=== PATIENT | female | born 1965 | race Caucasian/White ===

== ENCOUNTER 2019-03-09 12:38 | Inpatient (IN) | payer BC ==
[~2019-03-09] VITALS: Ht 172.7 cm; Wt 74.4 kg
[~2019-03-09 12:38] MED LIST: BYSTOLIC20 MG PO; DILT360C PO; DULA0.75 SQ; EXEN2VIA SQ; HYDR-2761 PO; HYDR-2868 PO; HYDR12.58 PO; LEVO125T PO; LEVO150T5 PO; LISI-334 PO; MELO15TA23 PO; METF500T16 PO; NIFE60TA PO; PANT20TA2 PO; POTA20TA4 PO; SIMV20TA3 PO; SULF500T7 PO; TEMA15CA6 PO; TRAM50TA PO
[2019-03-09] MEDS ORDERED: ASPIRIN CHEWABLE 81 MG TABLET. PO ONE (13:00)
[2019-03-09] MEDS ORDERED: NITROGLYCERIN SUBLINGUAL 0.4 MG BOTTLE OF 25. SL PRN (13:00)
--- NOTE | 2019-03-09 13:19 | RAD ---
Single view of the chest. 03/09/2019 1:04 PM Indication: Chest pain Comparison: Chest radiograph November 18, 2017 Findings: There is no focal consolidation. There is no pleural effusion or pneumothorax. The cardiomediastinal silhouette and pulmonary vasculature are within normal limits. No acute osseous abnormalities are seen. Impression: No evidence of acute cardiopulmonary process. Electronically signed by: Francisco Avalos MD (03/09/2019 1:15 PM) [facility]
[2019-03-09 13:24] LABS: BASO % 1 % (0-3); EOS # 0.1 x10^3/uL (0.0-0.7); EOS % 2 % (0-3); HEMATOCRIT 37.6 % (36.0-47.0); HEMOGLOBIN 12.5 g/dL (12.0-15.5); LYMPH # 2.8 x10^3/uL (1.0-4.8); LYMPH % 31 % (24-48); MEAN CORPUSCULAR HEMOGLOBIN 26 pg (25-35); MEAN CORPUSCULAR HGB CONC 33 g/dL (31-37); MEAN CORPUSCULAR VOLUME 79 fL (79-100); MONO % 11 % (0-9); NEUT # 5.1 x10^3/uL (1.8-7.7); NEUT % 56 % (31-73); PLATELET COUNT 383 x10^3/uL (140-400); RED BLOOD COUNT 4.75 x10^6/uL (3.50-5.40); RED CELL DISTRIBUTION WIDTH 14.6 % (11.5-14.5); WHITE BLOOD COUNT 9.1 x10^3/uL (4.0-11.0)
[2019-03-09 13:36] LABS: CALCIUM 10.1 mg/dL (8.5-10.1); CREATININE 1.4 mg/dL (0.6-1.0); GFR 39.5; POTASSIUM 4.1 mmol/L (3.5-5.1)
[2019-03-09 13:40] LABS: PROTHROMBIN TIME PATIENT 12.4 SEC (11.7-14.0)
[2019-03-09 13:42] LABS: ALBUMIN 3.8 g/dL (3.4-5.0); ALBUMIN/GLOBULIN RATIO 0.9 (1.0-1.7); MAGNESIUM 1.7 mg/dL (1.8-2.4); TOTAL BILIRUBIN 0.4 mg/dL (0.2-1.0); TOTAL PROTEIN 7.9 g/dL (6.4-8.2)
--- NOTE | 2019-03-09 13:48 | EKG ---
[facility] [address] [place] [address] Test Date: 2019-03-09 Test Time: 12:43:18 Pat Name: ALIS KOROMA Department: Room: Gender: F [employer] Sales Specialist: : 1965 Requested By: KATIA CARTER Order Number: [id number] Reading MD: Art Kaufman MD Measurements Intervals [place] Rate: 59 P: 0 KS: 208 QRS: -21 QRSD: 84 T: 72 QT: 440 QTc: 436 Interpretive Statements SINUS RHYTHM Electronically Signed On 03-09-2019 17:55:48 CDT by Art Kaufman MD
[2019-03-09] MEDS ORDERED: MORPHINE SULFATE 4 MG/ML VIAL. IV ONE (14:00)
[2019-03-09] MEDS ORDERED: ONDANSETRON PF 4 MG/2 ML VIAL. IV ONE (14:00)
--- NOTE | 2019-03-09 14:29 | PHYS DOC ---
Past Medical History Past Medical History: A-Fib, Diabetes-Type II, Hypertension, Other Additional Past Medical Histor: , Hodgkins lymphoma Past Surgical History: Cholecystectomy, Hysterectomy, Oophorectomy, Other Additional Past Surgical Histo: Thyroidectomy, bone marrow bx Alcohol Use: None Drug Use: None Adult General Chief Complaint Chief Complaint: CHEST PAIN HPI HPI Patient is a 53 year old female who presents with complaining of chest pain. Patient complaining of substernal aching chest pain since this morning as a constant pain with shortness of breath and dizziness. Patient states she had blood pressure of 116 and heart rate of 38 the. Patient rated her pain 8/10 and did not take pain medication at home. Patient denies history of chest pain and coronary artery disease but has history of intermittent episodes of atrial fibrillation. Review of Systems Review of Systems Constitutional: Denies fever or chills [] Eyes: Denies change in visual acuity, redness, or eye pain [] HENT: Denies nasal congestion or sore throat [] Respiratory: Denies cough or shortness of breath [] Cardiovascular: No additional information not addressed in HPI [] GI: Denies abdominal pain, nausea, vomiting, bloody stools or diarrhea [] : Denies dysuria or hematuria [] Musculoskeletal: Denies back pain or joint pain [] Integument: Denies rash or skin lesions [] Neurologic: Denies headache, focal weakness or sensory changes [] Endocrine: Denies polyuria or polydipsia [] All other systems were reviewed and found to be within normal limits, except as documented in this note. Current Medications Current Medications Current Medications Medications (Trade) Dose Ordered Sig/[facility] Start Time Stop Time Status Last Admin Dose Admin Aspirin (Children'S Aspirin) 324 mg 1X ONCE 03/09/19 13:00 03/09/19 13:07 DC 03/09/19 13:15 324 MG Morphine Sulfate (Morphine Sulfate) 4 mg 1X ONCE 03/09/19 14:00 03/09/19 14:01 DC 03/09/19 13:58 4 MG Nitroglycerin (Nitrostat) 0.4 mg PRN Q5MIN PRN 03/09/19 13:00 03/10/19 12:59 03/09/19 13:15 0.4 MG Ondansetron HCl (Zofran) 4 mg 1X ONCE 03/09/19 14:00 03/09/19 14:01 DC 03/09/19 13:58 4 MG Allergies Allergies Allergies Coded Allergies Type Severity Reaction Last Updated Verified bacitracin Allergy Intermediate 11/19/17 Yes meperidine Allergy Intermediate 11/19/17 Yes neomycin Allergy Intermediate 11/19/17 Yes polymyxin B Allergy Intermediate 11/19/17 Yes Physical Exam Physical Exam Constitutional: Well developed, well nourished, mild distress, non-toxic appearance. [] HENT: Normocephalic, atraumatic, oropharynx moist. Eyes: PERRLA, EOMI, conjunctiva normal, no discharge. [] Neck: Normal range of motion, no tenderness, supple, no stridor. [] Cardiovascular:Heart rate regular rhythm, no murmur [] Lungs & Thorax: Bilateral breath sounds clear to auscultation [] Abdomen: Bowel sounds normal, soft, no tenderness, no masses, no pulsatile masses. [] Skin: Warm, dry, no erythema, no rash. [] Back: No tenderness, no CVA tenderness. [] Extremities: No tenderness, no cyanosis, no clubbing, ROM intact, no edema. [] Neurologic: Alert and oriented X 3, normal motor function, normal sensory function, no focal deficits noted. [] Psychologic: Affect normal, judgement normal, mood normal. [] Current Patient Data Vital Signs Vital Signs Date Time Temp Pulse Resp B/P (MAP) Pulse Ox O2 Delivery O2 Flow Rate FiO2 03/09/19 14:16 56 16 141/74 (96) 97 Room Air 03/09/19 12:40 98.1 98.1 Lab Values Laboratory Tests Test 03/09/19 13:07 White Blood Count 9.1 x10^3/uL (4.0-11.0) Red Blood Count 4.75 x10^6/uL (3.50-5.40) Hemoglobin 12.5 g/dL (12.0-15.5) Hematocrit 37.6 % (36.0-47.0) Mean Corpuscular Volume 79 fL (79-100) Mean Corpuscular Hemoglobin 26 pg (25-35) Mean Corpuscular Hemoglobin Concent 33 g/dL (31-37) Red Cell Distribution Width 14.6 % (11.5-14.5) H Platelet Count 383 x10^3/uL (140-400) Neutrophils (%) (Auto) 56 % (31-73) Lymphocytes (%) (Auto) 31 % (24-48) Monocytes (%) (Auto) 11 % (0-9) H Eosinophils (%) (Auto) 2 % (0-3) Basophils (%) (Auto) 1 % (0-3) Neutrophils # (Auto) 5.1 x10^3/uL (1.8-7.7) Lymphocytes # (Auto) 2.8 x10^3/uL (1.0-4.8) Monocytes # (Auto) 1.0 x10^3/uL (0.0-1.1) Eosinophils # (Auto) 0.1 x10^3/uL (0.0-0.7) Basophils # (Auto) 0.0 x10^3/uL (0.0-0.2) Prothrombin Time 12.4 SEC (11.7-14.0) Prothrombin Time INR 1.0 (0.8-1.1) Sodium Level 142 mmol/L (136-145) Potassium Level 4.1 mmol/L (3.5-5.1) Chloride Level 105 mmol/L (98-107) Carbon Dioxide Level 24 mmol/L (21-32) Anion Gap 13 (6-14) Blood Urea Nitrogen 19 mg/dL (7-20) Creatinine 1.4 mg/dL (0.6-1.0) H Estimated GFR (Cockcroft-Gault) 39.5 BUN/Creatinine Ratio 14 (6-20) Glucose Level 114 mg/dL (70-99) H Calcium Level 10.1 mg/dL (8.5-10.1) Magnesium Level 1.7 mg/dL (1.8-2.4) L Total Bilirubin 0.4 mg/dL (0.2-1.0) Aspartate Amino Transferase (AST) 15 U/L (15-37) Alanine Aminotransferase (ALT) 19 U/L (14-59) Alkaline Phosphatase 67 U/L (46-116) Creatine Kinase 75 U/L (26-192) Troponin I Quantitative < 0.017 ng/mL (0.000-0.055) HW-Iyx-W-Type Natriuretic Peptide 1081 pg/mL (0-124) H Total Protein 7.9 g/dL (6.4-8.2) Albumin 3.8 g/dL (3.4-5.0) Albumin/Globulin Ratio 0.9 (1.0-1.7) L Lipase 389 U/L (73-393) Thyroid Stimulating Hormone (TSH) 4.072 uIU/mL (0.358-3.74) H Laboratory Tests 03/09/19 13:07 Laboratory Tests 03/09/19 13:07 EKG EKG EKG interpreted by me. EKG at 1243 showed sinus bradycardia at rate of 59, left matute axis, poor R-wave progress in anteroseptal leads, T-wave abnormality in high lateral leads, no acute ST and T-wave abnormalities. Radiology/Procedures Radiology/Procedures [][facility] [address] [place] [address] IMAGING REPORT Signed PATIENT: ALIS KOROMA ACCOUNT: [id number] : 1965 LOCATION: ER AGE: 53 SEX: F EXAM STATUS: REG ER ORD. PHYSICIAN: KATIA CARTER MD REASON: chest pain PROCEDURE: PORTABLE CHEST 1V Single view of the chest. 03/09/2019 1:04 PM Indication: Chest pain Comparison: Chest radiograph November 18, 2017 Findings: There is no focal consolidation. There is no pleural effusion or pneumothorax. The cardiomediastinal silhouette and pulmonary vasculature are within normal limits. No acute osseous abnormalities are seen. Impression: No evidence of acute cardiopulmonary process. Electronically signed by: Francisco Grover MD (03/09/2019 1:15 PM) [facility] DICTATED and SIGNED BY: FRANCISCO GROVER MD DATE: 03/09/19 5629 Course & Med Decision Making Course & Med Decision Making Pertinent Labs and Imaging studies reviewed. (See chart for details) Evaluation of patient in ER showed 53-year-old female patient with complaining of chest pain since this morning. Patient treated with nitroglycerin �1 with troponin of pain from 8 to 6 and drop of blood pressure to 110. Patient treated with morphine with improvement pain to 4/10. Patient had mild hypomagnesemia and elevation of BNP. Patient had heart score of 4.Patient requiring admission for further evaluation and treatment. Discussed with Dr. Lester who is in agreement with admission. Discussed findings and plan with patient and family, who acknowledge understanding and agreement. Dragon Disclaimer Dragon Disclaimer This electronic medical record was generated, in whole or in part, using a voice recognition dictation system. Departure Departure Impression: Primary Impression: Acute chest pain Additional Impressions: Hypomagnesemia CHF (congestive heart failure) Renal insufficiency History of atrial fibrillation Disposition: 09 ADMITTED INPATIENT (at 1505) Condition: IMPROVED Referrals: JORGE A RODARTE (PCP) The HEART Score for CP Pts HEART Score for Chest Pain: HEART Score for Chest Pain Response (Comments) Value History Moderately Suspicious 1 Age >45 - < 65 1 Risk Factors >3 Risk Factors or Hx CAD 2 Troponin < Normal Limit 0 Total 4 Risk Factors: Risk Factors: DM, Current or recent (<one month) smoker, HTN, HLP, family history of CAD, obesity. Risk Scores: Score 0 - 3: 2.5% MACE over next 6 weeks - Discharge Home Score 4 - 6: 20.3% MACE over next 6 weeks - Admit for Clinical Observation Score 7 - 10: 72.7% MACE over next 6 weeks - Early Invasive Strategies Problem Qualifiers Additional Impressions: CHF (congestive heart failure) Heart failure type: unspecified Heart failure chronicity: unspecified Qu alified Codes: I50.9 - Heart failure, unspecified KATIA CARTER MD Mar 09, 2019 14:29
[2019-03-09 15:25] VITALS: BP 153/72
--- NOTE | 2019-03-09 16:53 | CARD ---
MR#: [id number] Date of Study: 03/09/2019 Ordering Physician: ROMAIN VICENTE, Referring Physician: ROMAIN VICENTE, Tech: Carmen Guadarrama APPROVED REPORT EXAM: Two-dimensional and M-mode echocardiogram with Doppler and color Doppler. Other Information Quality : GoodHR: 63bpm INDICATION Atrial Fibrillation Chest Pain RISK FACTORS Hypertension Diabetes 2D DIMENSIONS RVDd2.9 (2.9-3.5cm)Left Atrium(2D)3.6 (1.6-4.0cm) IVSd1.1 (0.7-1.1cm)Aortic Root(2D)3.6 (2.0-3.7cm) LVDd5.0 (3.9-5.9cm)LVOT Diameter2.0 (1.8-2.4cm) PWd1.1 (0.7-1.1cm)LVDs2.4 (2.5-4.0cm) FS (%) 52.3 %SV98.7 ml LVEF(%)83.2 (>50%) Aortic Valve AoV Peak Khanh.127.8cm/sAoV VTI28.3cm AO Peak GR.6.5mmHgLVOT VTI 23.60cm AO Mean GR.4mmHg Mitral Valve MV E Yezkgunv17.2cm/sMV DECEL [id number] MV A Zhmgyxbk40.3cm/sE/A Ratio1.3 TDI Lateral E' P. V6.76cm/sMedial E' P. V5.47cm/s E/Lateral E'13.8E/Medial E'17.0 Tricuspid Valve TR P. Ocsskxej637tn/sRAP OFGQRIZA2kaNb TR Peak Gr.88dhVnWXPD12zrQa Pulmonary Vein S1 Twcfzeoz07.8cm/sS2 Xbwuoayn78.18cm/s D2 Tnoirprm12.2cm/sPVa [id number] LEFT VENTRICLE The left ventricle is normal size. There is mild concentric left ventricular hypertrophy. The left ve ntricular systolic function is normal. The Ejection Fraction is 60-65%. There is normal LV segmental wall motion. RIGHT VENTRICLE The right ventricle is normal size. There is normal right ventricular wall thickness. The right ventr icular systolic function is normal. ATRIA The left atrium is mildly dilated. The right atrium size is normal. The interatrial septum is intact with no evidence for an atrial septal defect or patent foramen ovale as noted on 2-D or Doppler imagi ng. AORTIC VALVE The aortic valve is normal in structure and function. Doppler and Color Flow revealed no significant aortic regurgitation. There is no significant aortic valvular stenosis. MITRAL VALVE The mitral valve is thickened but opens well. There is no evidence of mitral valve prolapse. There is no mitral valve stenosis. Doppler and Color-flow revealed trace mitral regurgitation. TRICUSPID VALVE The tricuspid valve is normal in structure and function. Doppler and Color Flow revealed trace tricus pid regurgitation with an estimated PAP of 27 mmHg. There is no tricuspid valve prolapse or vegetatio n. There is no tricuspid valve stenosis. PULMONIC VALVE The pulmonic valve is not well visualized. Doppler and Color Flow revealed no pulmonic valvular regur gitation. GREAT VESSELS The aortic root is mildly enlarged. The IVC is normal in size and collapses >50% with inspiration. PERICARDIAL EFFUSION There is no evidence of significant pericardial effusion. Critical Notification Critical Value: No <Conclusion> The left ventricular systolic function is normal. The Ejection Fraction is 60-65%. There is normal LV segmental wall motion. The left atrium is mildly dilated. Trace mitral regurgitation. Trace tricuspid regurgitation with an estimated PAP of 27 mmHg. There is no evidence of significant pericardial effusion. Signed by : Claudy Causey, Electronically Approved : 03/09/2019 16:53:14
--- NOTE | 2019-03-09 17:00 | PDOC1 ---
History and Physical Date of Admission Date of Admission DATE: 03/09/19 TIME: 17:00 Identification/Chief Complaint Chief Complaint seen in er , 53 year old female who presents with complaining of chest pain. Patient complaining of substernal aching chest pain since this morning as a constant pain with shortness of breath and dizziness. Patient states she had blood pressure of 116 and heart rate of 38 the. Patient rated her pain 8/10 and did not take pain medication at home. Patient denies history of chest pain and coronary artery disease but has history of intermittent episodes of atrial fibrillation. Past Medical History Past Medical History Past Medical History Past Medical History: A-Fib, Diabetes-Type II, Hypertension, Other Additional Past Medical Histor: , Hodgkins lymphoma Past Surgical History: Cholecystectomy, Hysterectomy, Oophorectomy, Other Additional Past Surgical Histo: Thyroidectomy, bone marrow bx Alcohol Use: None Drug Use: None family hx htn Cardiovascular: AFIB, HTN, Hyperlipidemia GI: Inflam bowel disease Renal/: Chronic renal insuff Past Surgical History Past Surgical History: No pertinent history Family History Family History: Hypertension Social History Smoke: No ALCOHOL: none Drugs: None Current Problem List Problem List Problems Medical Problems: (1) Acute chest pain Status: Acute (2) CHF (congestive heart failure) Status: Acute (3) History of atrial fibrillation Status: Acute (4) Hypomagnesemia Status: Acute (5) Renal insufficiency Status: Acute Current Medications Current Medications Current Medications Aspirin (Children'S Aspirin) 324 mg 1X ONCE PO Last administered on 03/09/19at 13:15; Start 03/09/19 at 13:00; Stop 03/09/19 at 13:07; Status DC Nitroglycerin (Nitrostat) 0.4 mg PRN Q5MIN PRN SL CP RATING > 1/10 Last administered on 03/09/19at 13:15; Start 03/09/19 at 13:00; Stop 03/10/19 at 12:59 Ondansetron HCl (Zofran) 4 mg 1X ONCE IV Last administered on 03/09/19at 13:58; Start 03/09/19 at 14:00; Stop 03/09/19 at 14:01; Status DC Morphine Sulfate (Morphine Sulfate) 4 mg 1X ONCE IV Last administered on 03/09/19at 13:58; Start 03/09/19 at 14:00; Stop 03/09/19 at 14:01; Status DC Active Scripts Active Synthroid (Levothyroxine Sodium) 125 Mcg Tablet 125 Mcg PO DAILY07 30 Days Hydralazine Hcl 25 Mg Tablet 25 Mg PO TID 30 Days Reported Trulicity (Dulaglutide) 0.75 Mg/0.5 Ml Pen.injctr 0.75 Mg SQ QSU Restoril (Temazepam) 15 Mg Capsule 1 Cap PO QHS Hydrocodone-Apap 5-325 (Hydrocodone Bit/Acetaminophen) 1 Each Tablet 1 Tab PO BID Cardizem Cd (Diltiazem Hcl) 360 Mg Cap.er.24h 180 Mg PO DAILY Lisinopril 20 Mg Tablet 1 Tab PO DAILY Tramadol Hcl 50 Mg Tablet 100 Mg PO QIDPRN PRN Sulfasalazine 500 Mg Tablet 1,500 Mg PO BID Bystolic (Nebivolol Hcl) 20 Mg Tablet 1 Tab PO BID Simvastatin 20 Mg Tablet 1 Tab PO QHS Protonix (Pantoprazole Sodium) 20 Mg Tablet.dr 1 Tab PO DAILY Allergies Allergies: Coded Allergies: bacitracin (Verified Allergy, Intermediate, 11/19/17) meperidine (Verified Allergy, Intermediate, 11/19/17) neomycin (Verified Allergy, Intermediate, 11/19/17) polymyxin B (Verified Allergy, Intermediate, 11/19/17) ROS Review of System Review of Systems Review of Systems Constitutional: Denies fever or chills [] Eyes: Denies change in visual acuity, redness, or eye pain [] HENT: Denies nasal congestion or sore throat [] Respiratory: Denies cough or shortness of breath [] Cardiovascular: No additional information not addressed in HPI [] GI: Denies abdominal pain, nausea, vomiting, bloody stools or diarrhea [] : Denies dysuria or hematuria [] Musculoskeletal: Denies back pain or joint pain [] Integument: Denies rash or skin lesions [] Neurologic: Denies headache, focal weakness or sensory changes [] Endocrine: Denies polyuria or polydipsia [] 14 pt systems were reviewed and found to be within normal limits, except as documented Physical Exam Physical Exam Physical Exam Physical Exam Constitutional: Well developed, well nourished, mild distress, non-toxic appearance. [] HENT: Normocephalic, atraumatic, oropharynx moist. Eyes: PERRLA, EOMI, conjunctiva normal, no discharge. [] Neck: Normal range of motion, no tenderness, supple, no stridor. [] Cardiovascular:Heart rate regular rhythm, no murmur [] Lungs & Thorax: Bilateral breath sounds clear to auscultation [] Abdomen: Bowel sounds normal, soft, no tenderness, no masses, no pulsatile beth s. [] Skin: Warm, dry, no erythema, no rash. [] Back: No tenderness, no CVA tenderness. [] Extremities: No tenderness, no cyanosis, no clubbing, ROM intact, no edema. [] Neurologic: Alert and oriented X 3, normal motor function, normal sensory function, no focal deficits noted. [] Psychologic: Affect normal, judgement normal, mood normal. [] General: Alert, Oriented X3, Cooperative, No acute distress, mild distress HEENT: Atraumatic Lungs: Clear to auscultation, Normal air movement Neuro: Normal speech, Cranial nerves 3-12 NL Psych/Mental Status: Mental status NL, Mood NL Vitals Vitals Vital Signs Date Time Temp Pulse Resp B/P (MAP) Pulse Ox O2 Delivery O2 Flow Rate FiO2 03/09/19 16:07 Room Air 03/09/19 14:46 59 16 123/67 (85) 97 03/09/19 12:40 98.1 98.1 Labs Labs Laboratory Tests Test 03/09/19 13:07 White Blood Count 9.1 x10^3/uL (4.0-11.0) Red Blood Count 4.75 x10^6/uL (3.50-5.40) Hemoglobin 12.5 g/dL (12.0-15.5) Hematocrit 37.6 % (36.0-47.0) Mean Corpuscular Volume 79 fL (79-100) Mean Corpuscular Hemoglobin 26 pg (25-35) Mean Corpuscular Hemoglobin Concent 33 g/dL (31-37) Red Cell Distribution Width 14.6 % (11.5-14.5) Platelet Count 383 x10^3/uL (140-400) Neutrophils (%) (Auto) 56 % (31-73) Lymphocytes (%) (Auto) 31 % (24-48) Monocytes (%) (Auto) 11 % (0-9) Eosinophils (%) (Auto) 2 % (0-3) Basophils (%) (Auto) 1 % (0-3) Neutrophils # (Auto) 5.1 x10^3/uL (1.8-7.7) Lymphocytes # (Auto) 2.8 x10^3/uL (1.0-4.8) Monocytes # (Auto) 1.0 x10^3/uL (0.0-1.1) Eosinophils # (Auto) 0.1 x10^3/uL (0.0-0.7) Basophils # (Auto) 0.0 x10^3/uL (0.0-0.2) Prothrombin Time 12.4 SEC (11.7-14.0) Prothromb Time International Ratio 1.0 (0.8-1.1) Sodium Level 142 mmol/L (136-145) Potassium Level 4.1 mmol/L (3.5-5.1) Chloride Level 105 mmol/L (98-107) Carbon Dioxide Level 24 mmol/L (21-32) Anion Gap 13 (6-14) Blood Urea Nitrogen 19 mg/dL (7-20) Creatinine 1.4 mg/dL (0.6-1.0) Estimated GFR (Cockcroft-Gault) 39.5 BUN/Creatinine Ratio 14 (6-20) Glucose Level 114 mg/dL (70-99) Calcium Level 10.1 mg/dL (8.5-10.1) Magnesium Level 1.7 mg/dL (1.8-2.4) Total Bilirubin 0.4 mg/dL (0.2-1.0) Aspartate Amino Transf (AST/SGOT) 15 U/L (15-37) Alanine Aminotransferase (ALT/SGPT) 19 U/L (14-59) Alkaline Phosphatase 67 U/L (46-116) Creatine Kinase 75 U/L (26-192) Troponin I Quantitative < 0.017 ng/mL (0.000-0.055) AL-Egn-E-Type Natriuretic Peptide 1081 pg/mL (0-124) Total Protein 7.9 g/dL (6.4-8.2) Albumin 3.8 g/dL (3.4-5.0) Albumin/Globulin Ratio 0.9 (1.0-1.7) Lipase 389 U/L (73-393) Thyroid Stimulating Hormone (TSH) 4.072 uIU/mL (0.358-3.74) Laboratory Tests Test 03/09/19 13:07 White Blood Count 9.1 x10^3/uL (4.0-11.0) Red Blood Count 4.75 x10^6/uL (3.50-5.40) Hemoglobin 12.5 g/dL (12.0-15.5) Hematocrit 37.6 % (36.0-47.0) Mean Corpuscular Volume 79 fL (79-100) Mean Corpuscular Hemoglobin 26 pg (25-35) Mean Corpuscular Hemoglobin Concent 33 g/dL (31-37) Red Cell Distribution Width 14.6 % (11.5-14.5) Platelet Count 383 x10^3/uL (140-400) Neutrophils (%) (Auto) 56 % (31-73) Lymphocytes (%) (Auto) 31 % (24-48) Monocytes (%) (Auto) 11 % (0-9) Eosinophils (%) (Auto) 2 % (0-3) Basophils (%) (Auto) 1 % (0-3) Neutrophils # (Auto) 5.1 x10^3/uL (1.8-7.7) Lymphocytes # (Auto) 2.8 x10^3/uL (1.0-4.8) Monocytes # (Auto) 1.0 x10^3/uL (0.0-1.1) Eosinophils # (Auto) 0.1 x10^3/uL (0.0-0.7) Basophils # (Auto) 0.0 x10^3/uL (0.0-0.2) Prothrombin Time 12.4 SEC (11.7-14.0) Prothromb Time International Ratio 1.0 (0.8-1.1) Sodium Level 142 mmol/L (136-145) Potassium Level 4.1 mmol/L (3.5-5.1) Chloride Level 105 mmol/L (98-107) Carbon Dioxide Level 24 mmol/L (21-32) Anion Gap 13 (6-14) Blood Urea Nitrogen 19 mg/dL (7-20) Creatinine 1.4 mg/dL (0.6-1.0) Estimated GFR (Cockcroft-Gault) 39.5 BUN/Creatinine Ratio 14 (6-20) Glucose Level 114 mg/dL (70-99) Calcium Level 10.1 mg/dL (8.5-10.1) Magnesium Level 1.7 mg/dL (1.8-2.4) Total Bilirubin 0.4 mg/dL (0.2-1.0) Aspartate Amino Transf (AST/SGOT) 15 U/L (15-37) Alanine Aminotransferase (ALT/SGPT) 19 U/L (14-59) Alkaline Phosphatase 67 U/L (46-116) Creatine Kinase 75 U/L (26-192) Troponin I Quantitative < 0.017 ng/mL (0.000-0.055) DA-Som-U-Type Natriuretic Peptide 1081 pg/mL (0-124) Total Protein 7.9 g/dL (6.4-8.2) Albumin 3.8 g/dL (3.4-5.0) Albumin/Globulin Ratio 0.9 (1.0-1.7) Lipase 389 U/L (73-393) Thyroid Stimulating Hormone (TSH) 4.072 uIU/mL (0.358-3.74) Images Images Single view of the chest. 03/09/2019 1:04 PM Indication: Chest pain Comparison: Chest radiograph November 18, 2017 Findings: There is no focal consolidation. There is no pleural effusion or pneumothorax. The cardiomediastinal silhouette and pulmonary vasculature are within normal limits. No acute osseous abnormalities are seen. Impression: No evidence of acute cardiopulmonary process. Electronically signed by: Francisco Avalos MD (03/09/2019 1:15 PM) [facility] LEFT VENTRICLE The left ventricle is normal size. There is mild concentric left ventricular hypertrophy. The left ventricular systolic function is normal. The Ejection Fraction is 60-65%. There is normal LV segmental wall motion. RIGHT VENTRICLE The right ventricle is normal size. There is normal right ventricular wall thickness. The right ventricular systolic function is normal. ATRIA The left atrium is mildly dilated. The right atrium size is normal. The interatrial septum is intact with no evidence for an atrial septal defect or patent foramen ovale as noted on 2-D or Doppler imaging. AORTIC VALVE The aortic valve is normal in structure and function. Doppler and Color Flow r evealed no significant aortic regurgitation. There is no significant aortic valvular stenosis. MITRAL VALVE The mitral valve is thickened but opens well. There is no evidence of mitral valve prolapse. There is no mitral valve stenosis. Doppler and Color-flow revealed trace mitral regurgitation. TRICUSPID VALVE The tricuspid valve is normal in structure and function. Doppler and Color Flow revealed trace tricuspid regurgitation with an estimated PAP of 27 mmHg. There is no tricuspid valve prolapse or vegetation. There is no tricuspid valve stenosis. PULMONIC VALVE The pulmonic valve is not well visualized. Doppler and Color Flow revealed no pulmonic valvular regurgitation. GREAT VESSELS The aortic root is mildly enlarged. The IVC is normal in size and collapses >50% with inspiration. PERICARDIAL EFFUSION There is no evidence of significant pericardial effusion. Critical Notification Critical Value: No <Conclusion> The left ventricular systolic function is normal. The Ejection Fraction is 60-65%. There is normal LV segmental wall motion. The left atrium is mildly dilated. Trace mitral regurgitation. Trace tricuspid regurgitation with an estimated PAP of 27 mmHg. There is no evidence of significant pericardial effusion. Signed by : Richard Causey, Electronically Approved : 03/09/2019 16:53:14 DICTATED and SIGNED BY: RICHARD CAUSEY MD DATE: 03/09/19 1653 VTE Prophylaxis Ordered VTE Prophylaxis Devices: No VTE Pharmacological Prophylaxi: Yes Assessment/Plan Assessment/Plan impression Acute chest pain Hypomagnesemia CHF (congestive heart failure) Renal insufficiency History of atrial fibrillation ADMITTED cardiology consult cvc bed ROMAIN VICENTE MD Mar 09, 2019 17:00
[2019-03-09] MEDS ORDERED: HYDR-2869 PO (17:32)
[2019-03-09] MEDS ORDERED: METF500T16 PO (17:34)
[2019-03-09] MEDS ORDERED: METF850T8 PO (17:34)
--- NOTE | 2019-03-09 18:22 | PDOC3 ---
Discharge Summary Date of Admission: Mar 09, 2019 Date of Discharge: Mar 09, 2019 Follow-Up: 3-5 days Admitting Diagnosis comment: discharge dx Assessment/Plan impression Acute chest pain Hypomagnesemia CHF (congestive heart failure) Renal insufficiency History of atrial fibrillation ADMITTED cardiology consult ok with d/c today cvc bed see pcp next week FINAL DIAGNOSIS Problems Medical Problems: (1) Acute chest pain Status: Acute (2) CHF (congestive heart failure) Status: Acute (3) History of atrial fibrillation Status: Acute (4) Hypomagnesemia Status: Acute (5) Renal insufficiency Status: Acute Brief Hospital Course Ms. Jones is a 53 old [sex] who presented with [ ] CONDITION AT DISCHARGE: Improved Discharge Medications Current Medications Aspirin (Children'S Aspirin) 324 mg 1X ONCE PO Last administered on 03/09/19at 13:15; Start 03/09/19 at 13:00; Stop 03/09/19 at 13:07; Status DC Nitroglycerin (Nitrostat) 0.4 mg PRN Q5MIN PRN SL CP RATING > 1/10 Last administered on 03/09/19at 13:15; Start 03/09/19 at 13:00; Stop 03/10/19 at 12:59 Ondansetron HCl (Zofran) 4 mg 1X ONCE IV Last administered on 03/09/19at 13:58; Start 03/09/19 at 14:00; Stop 03/09/19 at 14:01; Status DC Morphine Sulfate (Morphine Sulfate) 4 mg 1X ONCE IV Last administered on 03/09/19at 13:58; Start 03/09/19 at 14:00; Stop 03/09/19 at 14:01; Status DC Active Scripts Active Synthroid (Levothyroxine Sodium) 125 Mcg Tablet 125 Mcg PO DAILY07 30 Days Reported Metformin Hcl 850 Mg Tablet 750 Mg PO DAILYWBKFT Metformin Hcl 500 Mg Tablet 500 Mg PO HS Hydralazine Hcl 50 Mg Tablet 50 Mg PO DAILY Trulicity (Dulaglutide) 0.75 Mg/0.5 Ml Pen.injctr 0.75 Mg SQ QSU Restoril (Temazepam) 15 Mg Capsule 1 Cap PO QHS Hydrocodone-Apap 5-325 (Hydrocodone Bit/Acetaminophen) 1 Each Tablet 1 Tab PO BID Cardizem Cd (Diltiazem Hcl) 360 Mg Cap.er.24h 240 Mg PO DAILY Lisinopril 20 Mg Tablet 1 Tab PO DAILY Tramadol Hcl 50 Mg Tablet 50 Mg PO QIDPRN PRN Sulfasalazine 500 Mg Tablet 1,000 Mg PO BID Bystolic (Nebivolol Hcl) 20 Mg Tablet 10 Mg PO BID Simvastatin 20 Mg Tablet 1 Tab PO QHS Protonix (Pantoprazole Sodium) 20 Mg Tablet.dr 1 Tab PO DAILY Vital Signs Vital Signs Date Time Temp Pulse Resp B/P (MAP) Pulse Ox O2 Delivery O2 Flow Rate FiO2 03/09/19 16:07 Room Air 03/09/19 15:25 98.2 60 18 153/72 (99) 100 98.2 Labs Laboratory Tests Test 03/09/19 13:07 White Blood Count 9.1 x10^3/uL (4.0-11.0) Red Blood Count 4.75 x10^6/uL (3.50-5.40) Hemoglobin 12.5 g/dL (12.0-15.5) Hematocrit 37.6 % (36.0-47.0) Mean Corpuscular Volume 79 fL (79-100) Mean Corpuscular Hemoglobin 26 pg (25-35) Mean Corpuscular Hemoglobin Concent 33 g/dL (31-37) Red Cell Distribution Width 14.6 % (11.5-14.5) Platelet Count 383 x10^3/uL (140-400) Neutrophils (%) (Auto) 56 % (31-73) Lymphocytes (%) (Auto) 31 % (24-48) Monocytes (%) (Auto) 11 % (0-9) Eosinophils (%) (Auto) 2 % (0-3) Basophils (%) (Auto) 1 % (0-3) Neutrophils # (Auto) 5.1 x10^3/uL (1.8-7.7) Lymphocytes # (Auto) 2.8 x10^3/uL (1.0-4.8) Monocytes # (Auto) 1.0 x10^3/uL (0.0-1.1) Eosinophils # (Auto) 0.1 x10^3/uL (0.0-0.7) Basophils # (Auto) 0.0 x10^3/uL (0.0-0.2) Prothrombin Time 12.4 SEC (11.7-14.0) Prothromb Time International Ratio 1.0 (0.8-1.1) Sodium Level 142 mmol/L (136-145) Potassium Level 4.1 mmol/L (3.5-5.1) Chloride Level 105 mmol/L (98-107) Carbon Dioxide Level 24 mmol/L (21-32) Anion Gap 13 (6-14) Blood Urea Nitrogen 19 mg/dL (7-20) Creatinine 1.4 mg/dL (0.6-1.0) Estimated GFR (Cockcroft-Gault) 39.5 BUN/Creatinine Ratio 14 (6-20) Glucose Level 114 mg/dL (70-99) Calcium Level 10.1 mg/dL (8.5-10.1) Magnesium Level 1.7 mg/dL (1.8-2.4) Total Bilirubin 0.4 mg/dL (0.2-1.0) Aspartate Amino Transf (AST/SGOT) 15 U/L (15-37) Alanine Aminotransferase (ALT/SGPT) 19 U/L (14-59) Alkaline Phosphatase 67 U/L (46-116) Creatine Kinase 75 U/L (26-192) Troponin I Quantitative < 0.017 ng/mL (0.000-0.055) PW-Zaz-A-Type Natriuretic Peptide 1081 pg/mL (0-124) Total Protein 7.9 g/dL (6.4-8.2) Albumin 3.8 g/dL (3.4-5.0) Albumin/Globulin Ratio 0.9 (1.0-1.7) Lipase 389 U/L (73-393) Thyroid Stimulating Hormone (TSH) 4.072 uIU/mL (0.358-3.74) Laboratory Tests Test 03/09/19 13:07 White Blood Count 9.1 x10^3/uL (4.0-11.0) Red Blood Count 4.75 x10^6/uL (3.50-5.40) Hemoglobin 12.5 g/dL (12.0-15.5) Hematocrit 37.6 % (36.0-47.0) Mean Corpuscular Volume 79 fL (79-100) Mean Corpuscular Hemoglobin 26 pg (25-35) Mean Corpuscular Hemoglobin Concent 33 g/dL (31-37) Red Cell Distribution Width 14.6 % (11.5-14.5) Platelet Count 383 x10^3/uL (140-400) Neutrophils (%) (Auto) 56 % (31-73) Lymphocytes (%) (Auto) 31 % (24-48) Monocytes (%) (Auto) 11 % (0-9) Eosinophils (%) (Auto) 2 % (0-3) Basophils (%) (Auto) 1 % (0-3) Neutrophils # (Auto) 5.1 x10^3/uL (1.8-7.7) Lymphocytes # (Auto) 2.8 x10^3/uL (1.0-4.8) Monocytes # (Auto) 1.0 x10^3/uL (0.0-1.1) Eosinophils # (Auto) 0.1 x10^3/uL (0.0-0.7) Basophils # (Auto) 0.0 x10^3/uL (0.0-0.2) Prothrombin Time 12.4 SEC (11.7-14.0) Prothromb Time International Ratio 1.0 (0.8-1.1) Sodium Level 142 mmol/L (136-145) Potassium Level 4.1 mmol/L (3.5-5.1) Chloride Level 105 mmol/L (98-107) Carbon Dioxide Level 24 mmol/L (21-32) Anion Gap 13 (6-14) Blood Urea Nitrogen 19 mg/dL (7-20) Creatinine 1.4 mg/dL (0.6-1.0) Estimated GFR (Cockcroft-Gault) 39.5 BUN/Creatinine Ratio 14 (6-20) Glucose Level 114 mg/dL (70-99) Calcium Level 10.1 mg/dL (8.5-10.1) Magnesium Level 1.7 mg/dL (1.8-2.4) Total Bilirubin 0.4 mg/dL (0.2-1.0) Aspartate Amino Transf (AST/SGOT) 15 U/L (15-37) Alanine Aminotransferase (ALT/SGPT) 19 U/L (14-59) Alkaline Phosphatase 67 U/L (46-116) Creatine Kinase 75 U/L (26-192) Troponin I Quantitative < 0.017 ng/mL (0.000-0.055) GV-Cqw-C-Type Natriuretic Peptide 1081 pg/mL (0-124) Total Protein 7.9 g/dL (6.4-8.2) Albumin 3.8 g/dL (3.4-5.0) Albumin/Globulin Ratio 0.9 (1.0-1.7) Lipase 389 U/L (73-393) Thyroid Stimulating Hormone (TSH) 4.072 uIU/mL (0.358-3.74) Allergies Allergies Coded Allergies Type Severity Reaction Last Updated Verified bacitracin Allergy Intermediate 11/19/17 Yes meperidine Allergy Intermediate 11/19/17 Yes neomycin Allergy Intermediate 11/19/17 Yes polymyxin B Allergy Intermediate 11/19/17 Yes Disposition/Orders: D/C to Home Patient Instructions d/c planning 57 min ROMAIN VICENTE MD Mar 09, 2019 18:22
--- NOTE | 2019-03-09 18:23 | CONS ---
DATE OF CONSULTATION: 03/09/2019 REASON FOR CONSULTATION: Chest pain. HISTORY OF PRESENT ILLNESS: The patient is a pleasant 53-year-old woman with past medical history as noted below, coming into the hospital for further evaluation of chest discomfort. She apparently was in her usual state of health until yesterday and this morning began to notice some chest discomfort and feeling peculiar and felt that she just not was in her right state of health and came to the ER for further evaluation. She does have a prior history of paroxysmal atrial fibrillation, and has been stable on current medical therapy thus far. Since admission to the hospital, no obvious pathology has been identified. Her enzymes, echo and EKG have been unremarkable. She denies any other syncope or palpitations at this time. PAST MEDICAL HISTORY: 1. Paroxysmal atrial fibrillation, currently not on anticoagulation. 2. Hypertension. 3. Non-Hodgkin's lymphoma, status post chemotherapy. 4. Dyslipidemia. 5. Diabetes. SOCIAL HISTORY: The patient denies any alcohol, tobacco or illicit drug use. She works as a banker. FAMILY HISTORY: Noncontributory. REVIEW OF SYSTEMS: Negative for 10 out of 14 systems reviewed, unless otherwise mentioned above in HPI. PHYSICAL EXAMINATION: VITAL SIGNS: Afebrile, pulse rate 60, respiratory rate 18, blood pressure 153/72, oxygen saturation 100% on room air. GENERAL: She is alert and oriented, in no acute distress. HEAD AND NECK: Unremarkable. CARDIAC: Regular rate and rhythm without murmurs, rubs or gallops. LUNGS: Clear to auscultation bilaterally. ABDOMEN: Soft, nontender, nondistended. EXTREMITIES: No clubbing, cyanosis or edema. NEUROLOGIC: No focal deficits. MUSCULOSKELETAL: No trauma. DIAGNOSTIC STUDIES: Hemoglobin, platelets, creatinine and potassium are grossly within normal limits except for creatinine that is elevated at 1.4. Troponins negative x 1. BNP is mildly elevated 1081 and TSH is within normal limits. Chest x-ray demonstrates no obvious pathology. She has had a previous tilt table study during which she apparently had a seizure-like event, but no obvious cardiovagal issues. Echocardiogram demonstrates normal LV systolic function without any significant valvular heart disease. IMPRESSION: Chest pain: Atypical. No obvious cardiac abnormalities noted on current testing thus far. We will plan for outpatient stress testing and event monitor given her history of multiple cardiovascular issues. The patient is agreeable with this plan. Discussed with the patient's mother and her niece as well. Thank you for this consultation. ALIS LIVE MD DR: LILIAN/emerald JOB#: [id number] / [id number]
--- NOTE | 2019-03-09 18:23 | DISCH ---
DISCHARGE INSTRUCTIONS Condition on Discharge Condition on Discharge: Stable Activity After Discharge Activity Instructions for Disc: Activity as tolerated Exercise Instruction after Dis: Walk 10 min, 3 x per day, Walk 30 min, 3 x per week Driving Instructions after Dis: Do not drive today Weight Bearing Status after Di: Full weight bearing Diet after Discharge Diet after Discharge: Cardiac, Diabetic No Calorie Level Checks after Discharge Checks after discharge: Check blood press - daily, Check blood sugar, ac/hs Contacting the DR. after DC Call your doctor for: If your condition worsens ROMAIN VICENTE MD Mar 09, 2019 18:23
[2019-03-09] MEDS ORDERED: traMADol 50 MG TABLET PO PRN (18:30)
[2019-03-09] MEDS ORDERED: SIMVASTATIN 20 MG TABLET PO SCH (21:00)
[2019-03-09] MEDS ORDERED: sulfaSALAzine 500 MG TABLET PO SCH (21:00)
[2019-03-09] MEDS ORDERED: HYDROcodone/APAP 5/325MG 1 TAB TABLET PO SCH (21:00)
[2019-03-09] MEDS ORDERED: METOPROLOL TART IMMED RELEASE 50 MG TABLET. PO SCH (21:00)
[2019-03-09] MEDS ORDERED: metFORMIN 500 MG TABLET PO SCH (21:00)
[2019-03-09] MEDS ORDERED: TEMAZEPAM 15 MG CAPSULE PO SCH (21:00)
[2019-03-10] MEDS ORDERED: LEVOTHYROXINE 125 MCG TABLET PO SCH (07:00)
[2019-03-10] MEDS ORDERED: PANTOPRAZOLE 40 MG TABLET.DR. PO SCH (07:30)
[2019-03-10] MEDS ORDERED: metFORMIN 500 MG TABLET PO SCH (08:00)
[2019-03-10] MEDS ORDERED: LISINOPRIL 20 MG TABLET PO SCH (09:00)
[2019-03-11] MEDS ORDERED: NON FORMULARY ITEM (Dulaglutide (Trulicity) 0.75 MG) SQ SCH (16:00)
== END 2019-03-09 18:35 | disposition home or self-care (01) | DRG 313 ==
LOC: ER 12:38 → 2 NORTH 14:23
PROVIDERS: ADMIT Family Medicine; ATTEND Family Medicine
DX: R07.89 Other chest pain (principal); I13.0 Hypertensive heart and chronic kidney disease with heart failure and stage 1 through stage 4 chronic kidney disease, or unspecified chronic kidney disease; E89.0 Postprocedural hypothyroidism; E83.42 Hypomagnesemia; I50.9 Heart failure, unspecified; N18.9 Chronic kidney disease, unspecified; E11.22 Type 2 diabetes mellitus with diabetic chronic kidney disease; E78.5 Hyperlipidemia, unspecified; I48.0 Paroxysmal atrial fibrillation; Z90.710 Acquired absence of both cervix and uterus; Z90.49 Acquired absence of other specified parts of digestive tract; Z88.1 Allergy status to other antibiotic agents; Z88.8 Allergy status to other drugs, medicaments and biological substances; Z82.49 Family history of ischemic heart disease and other diseases of the circulatory system; Z92.21 Personal history of antineoplastic chemotherapy; Z85.72 Personal history of non-Hodgkin lymphomas
CPT/HCPCS: 36415; 71045; 80053; 82550; 83690; 83735; 83880; 84443; 84484; 85025; 85610; 93005; 93306; J2270; J2405; G0378

== ENCOUNTER → 2019-03-28 | Outpatient (CLI) | payer BC ==
[2019-03-09 15:25] VITALS: BP 153/72
[~2019-03-28] MED LIST changes: +HYDR-2869 PO; +METF850T8 PO
--- NOTE | 2019-03-28 15:52 | CARD ---
MR#: [id number] Date of Study: 03/28/2019 Ordering Physician: ALIS KAUFMAN, Referring Physician: ALIS KAUFMAN, Tech: Morenita Ritchie, CS APPROVED REPORT INDICATION Chest Pain RISK FACTORS Hypertension Diabetes Reason : Patient complained of pain PROCEDURE The patient underwent an Exercise Stress Test using the Aj Protocol. Blood pressure, heart rate, a nd EKG were monitored. An Echocardiogram was performed by reproduction technician in four stages in quad fashion. At peak stress four se lected images were obtained and placed side by side with resting images for comparison. STRESS ECHO FINDINGS The resting Echocardiogram showed normal left ventricular systolic contractility with an estimated Ej ection Fraction of about 55 %. The Resting Echocardiogram showed normal augmentation of myocardial wall segments using a 16 segment model. The Stress Echocardiogram showed normal augmentation of myocardial wall segments using a 16 segment m ton. The Stress Echocardiogram left ventricular systolic contractility has an estimated Ejection Fraction of about 65%. Test Type: Exercise Stress Nurse/Tech: Vicky Cates R.N. Test Indications: Afib, c/p Cardiac History and Allergies: afib, htn, Medications: see ehr Medical History: see ehr Resting ECG: SR Resting Heart Rate: 79 bpm Resting Blood Pressure: 183/63mmHg Pretest Chest Pain: No chest pain Nurse/Tech Notes S1S2, lungs CTA Stress Symptoms fatigue, SOB POST EXERCISE Reason for Termination: Reached target heart rate Target HR: Yes Max HR: 158 bpm 94% of Maximum Predicted HR: 168 bpm Exercise duration: 8:22 min:sec, 3 Stage Exercise capacity: 10.1METs Max Blood Pressure: 216/106mmHg Blood Pressure response to exercise: Normal blood pressure response during stress. Heart Rate response to exercise: wnl Chest Pain: No. Arrhythmia: No. ST Change: Yes. ST elevation in lead AVR, ST depression in leads II,III,AVF, V5&6. Notified Dr. Bj salamanca of these changes and he was ok with letting pt go home as she had no chest pain with them. RESTING ECG Rhythm: Sinus STRESS ECG Rhythm: Sinus Moderately positive ST-Segment changes. Stress EKG shows changes suggestive of ischemia. Preliminary Notification Critical Value: No <Conclusion> Baseline EKG wnl Stress EKG suggestive of balanced multivessel disease. Normal resting wall motion and EF. Normal EF at peak stress and wall motion. Signed by : Alis Kaufman, Electronically Approved : 03/28/2019 15:52:03
== END | disposition home or self-care (01) ==
LOC: ECHO 12:32
PROVIDERS: ATTEND Internal Medicine Cardiovascular Disease
DX: R07.9 Chest pain, unspecified (principal); I48.91 Unspecified atrial fibrillation; R53.83 Other fatigue; R06.02 Shortness of breath
CPT/HCPCS: 93017; 93350

== ENCOUNTER 2019-05-07 13:00 | Inpatient (IN) | payer BC ==
[~2019-05-07] VITALS: Ht 172.7 cm; Wt 70.9 kg
[~2019-05-07 13:00] MED LIST changes: +ASPI-612 PO; +MAGN400C PO; +PRAS10TA9 PO; +SIMV20TA18 PO; -SIMV20TA3 PO
[2019-05-07 14:36] VITALS: BP 162/80
[2019-05-07] MEDS ORDERED: ATOR40TA59 PO (14:58)
[2019-05-07] MEDS ORDERED: DOFE250C PO (14:58)
[2019-05-07] MEDS ORDERED: ONDA4TAB11 PO (14:58)
[2019-05-07] MEDS ORDERED: DILT240T8 PO (14:58)
[2019-05-07] MEDS ORDERED: MORPHINE SULFATE 4 MG/ML VIAL. IV PRN (15:30)
[2019-05-07] MEDS ORDERED: DEXTROSE 50% 25 GM / 50ML DISP.SYRIN. IV PRN (15:30)
[2019-05-07] MEDS ORDERED: NITROGLYCERIN SUBLINGUAL 0.4 MG BOTTLE OF 25. SL PRN (15:30)
[2019-05-07] MEDS ORDERED: traMADol 50 MG TABLET PO PRN (15:30)
--- NOTE | 2019-05-07 15:39 | PDOC2 ---
ROBERT GURROLA UNDERGROUND ROOF BOLTER 05/07/19 1539: CARDIAC CONSULT DATE OF CONSULT Date of Consult DATE: 05/07/19 TIME: 15:30 REASON FOR CONSULT Reason for Consult: AFIB with RVR REFERRING PHYSICIAN Referring Physician: Dr. Mckinley SOURCE Source: Chart review, Patient HISTORY OF PRESENT ILLNESS HISTORY OF PRESENT ILLNESS This is a 53 yo female who presented to [facility] secondary to chest pain, palpitations. Was noted in AFIB with RVR. Cardizem gtt was initiated; patient converted to SR. Troponin negative. Patient was transferred to [facility] for further evaluation and treatment per family request. Patient reports she was in AFIB intermittently yesterday, but rate seemed to be controlled. This morning, felt like she continued to experience intermittent AFIB. While driving home this morning, began having significant palpitations. [place] like her heart was beating extremely fast. Developed pain, pressure in her central chest. [place] SOA, dizzy. Pulled over and had her sister come pick her up. Palpitations persisted despite valsalva maneuvers. Has a history of CAD and AFIB. Was started on Tikosyn last week. Has f/u with sap specialist tomorrow. PAST MEDICAL HISTORY Past Medical History 1. Paroxysmal atrial fibrillation 2. Hypertension. 3. Non-Hodgkin's lymphoma, status post chemotherapy. 4. Dyslipidemia. 5. Diabetes. 6. CAD s/p PCI/SHIMON to LCx 7. Hypothyroidism 8. CKD PAST SURGICAL HISTORY Past Surgical History: Cholecystectomy, Hysterectomy FAMILY HISTORY Family History: Heart Disease, Hypertension SOCIAL HISTORY Smoke: No ALCOHOL: none Drugs: None ALLERGIES ALLERGIES: Coded Allergies: bacitracin (Verified Allergy, Intermediate, 11/19/17) meperidine (Verified Allergy, Intermediate, 11/19/17) neomycin (Verified Allergy, Intermediate, 11/19/17) polymyxin B (Verified Allergy, Intermediate, 11/19/17) ROS Review of System 14 point ROS conducted with pertinent positives noted above in HPI PHYSICAL EXAM General: Alert, Oriented X3, Cooperative, No acute distress HEENT: Atraumatic, Mucous membr. moist/pink Lungs: Clear to auscultation, Normal air movement Heart: Regular rate, Normal S1, Normal S2 Abdomen: Soft Extremities: No edema, Normal pulses Skin: No breakdown, No significant lesion Neuro: Normal speech, Sensation intact Psych/Mental Status: Mental status NL, Mood NL MUSCULOSKELETAL: Osteoarthritic changes both hands VITALS/I&O VITALS/I&O: Vital Signs Date Time Temp Pulse Resp B/P (MAP) Pulse Ox O2 Delivery O2 Flow Rate FiO2 05/07/19 14:36 98.7 81 18 162/80 (107) 96 Room Air 98.7 ECHOCARDIOGRAM ECHOCARDIOGRAM <Conclusion> The left ventricular systolic function is normal. The Ejection Fraction is 60-65%. There is normal LV segmental wall motion. The left atrium is mildly dilated. Trace mitral regurgitation. Trace tricuspid regurgitation with an estimated PAP of 27 mmHg. There is no evidence of significant pericardial effusion. DATE: 03/09/19 1653 HEART CATH HEART CATH CORONARY ANGIOGRAPHY: LM is a large caliber vessel with normal angiographic appearance. LAD is a large caliber vessel with a mid to distal focal 50% stenosis. D1 is a large caliber bifurcating vessel with normal angiographic appearance. LCx is a large caliber non-dominant vessel with a mid 80% stenosis. LPL1 is a moderate caliber vessel with normal angiographic appearance. RCA is a moderate caliber dominant vessel with a mid 30% stenosis. RPDA is a moderate caliber vessel with normal angiographic appearance. Conclusion 1. Acute on chronic diastolic heart failure. LVEDP 17 mmHg 2. Two-vessel coronary artery disease 3. Successful PCI of the mid left circumflex with implantation of a 4.0 x 23 mm see her drug-eluting stent 4. Negative IFR of the mid LAD Recommendations ASA 81mg daily Prasugrel 10mg daily High dose statin therapy BP control Cardiac rehab therapy Monitoring of renal function due to CKD DATE: 04/05/19 1412 ASSESSMENT/PLAN ASSESSMENT/PLAN 1. Paroxysmal atrial fibrillation. On CCB. Tikosyn initiated last week. QTc 502. Convert to SR with Cardizem gtt. May need AF ablation 2. Chest pain, atypical. Most probably due to AFIB with RVR. Troponin negative 2. CAD s/p PCI/SHIMON to LCx. DAPT with ASA, Effient 3. Hypertension; controlled 4. Hyperlipidemia; statin 5. Diabetes, II 6. CKD 7. Hypothyroidism 8. Non-Hodgkin's lymphoma, status post chemotherapy. Recommendations Continue Cardizem and Tikosyn Secondary prevention D/w primary chorus dancer. May discharge from a CV standpoint and f/u with EP tomorrow as previously scheduled ALIS LIVE MD 05/08/19 0957: CARDIAC CONSULT ASSESSMENT/PLAN ASSESSMENT/PLAN Late entry for 05/07/2019. Pt. seen and examined. Agree with above HAND ENGRAVER note. ROBERT GURROLA APRN May 07, 2019 15:39 ALIS LIVE MD May 08, 2019 09:57
[2019-05-07] MEDS ORDERED: ONDANSETRON ODT 4 MG TAB.RAPDIS. PO PRN (15:45)
[2019-05-07] MEDS ORDERED: HYDROcodone/APAP 5/325MG 1 TAB TABLET PO PRN (16:00)
[2019-05-07] MEDS ORDERED: ASPIRIN ENTERIC COATED 81 MG TABLET.DR. PO SCH (17:00)
[2019-05-07] MEDS ORDERED: INSULIN LISPRO 300 UNITS/3 ML VIAL. SQ SCH (17:00)
[2019-05-07] MEDS ORDERED: LISINOPRIL 20 MG TABLET PO SCH (17:00)
--- NOTE | 2019-05-07 17:39 | NUR ---
Discharge Note: ALIS KOROMA [address] Discharge instructions and discharge home medications reviewed with Patient and a copy given. All questions have been answered and understanding verbalized. Spoke to Dr. Kaufman in person who stated the patient can go home. Contacted Dr. Mckinley and he stated he was ok with her discharging as long as Dr. Kaufman was ok with it. Patient ok to transfer and has been in NSR since being admitted.
[2019-05-07] MEDS ORDERED: HYDROcodone/APAP 5/325MG 1 TAB TABLET PO SCH (21:00)
[2019-05-07] MEDS ORDERED: sulfaSALAzine 500 MG TABLET PO SCH (21:00)
[2019-05-07] MEDS ORDERED: DOFETILIDE 125 MCG CAPSULE PO SCH (21:00)
[2019-05-07] MEDS ORDERED: ATORVASTATIN CALCIUM 40 MG TABLET. PO SCH (21:00)
[2019-05-07] MEDS ORDERED: TEMAZEPAM 15 MG CAPSULE PO SCH (21:00)
[2019-05-08] MEDS ORDERED: LEVOTHYROXINE 125 MCG TABLET PO SCH (06:00)
[2019-05-08] MEDS ORDERED: PANTOPRAZOLE 40 MG TABLET.DR. PO SCH (07:30)
[2019-05-08] MEDS ORDERED: PRASUGREL 10 MG TABLET. PO SCH (08:00)
[2019-05-08] MEDS ORDERED: MAGNESIUM OXIDE 400 MG TABLET PO SCH (09:00)
--- NOTE | 2019-05-10 11:08 | SSS ---
ADMIT DATE: HISTORY OF PRESENT ILLNESS: The patient is a 53-year-old female patient who presented to [facility] Emergency Room with chest pain and palpitation. She was noted to be in atrial fibrillation with rapid ventricular response. She was started on Cardizem drip and converted to sinus rhythm. Her troponins were negative. The patient was transferred to [facility] for further evaluation and treatment per family request. The patient has reported that she was in AFib intermittently the day before, but the rate seemed to be controlled. The morning of admission, she felt like she continued to experience intermittent atrial fibrillation while driving home. On the day of admission, she began having significant palpitation, felt like her heart was beating extremely fast. She developed pain, describes a pressure in the central chest, felt short of air, dizzy, and pulled over and had her sister come berry picker her. Her palpitations resisted despite Valsalva maneuver, has a history of coronary artery disease and AFib, was started on Tikosyn only last week, has a followup with the semaphore operator and specialist. She basically was evaluated by the cardiology team. As she remained in sinus rhythm, her primary processing inspector recommended to continue with Cardizem and Tikosyn and recommended that she should be discharged to follow with her semaphore operator the day after. PAST MEDICAL HISTORY: Significant for paroxysmal atrial fibrillation; hypertension; non-Hodgkin lymphoma, status post chemotherapy; dyslipidemia; type 2 diabetes mellitus; and coronary artery disease, status post PCI with drug-eluting stent to left circumflex artery. She is also known to have hypothyroidism and chronic kidney disease. PAST SURGICAL HISTORY: Significant for cholecystectomy, hysterectomy, as well as PCI with stent deployment. FAMILY HISTORY: Significant for hypertension and heart disease. SOCIAL HISTORY: She does not smoke, drink alcohol, or use any recreational drugs. ALLERGIES: SHE IS ALLERGIC TO BACITRACIN, MEPERIDINE, NEOMYCIN AND POLYMYXIN. REVIEW OF SYSTEMS: As per history of present illness. PHYSICAL EXAMINATION: On the day of admission, the patient looked well and was clearly in no apparent respiratory distress. No pallor, jaundice, cyanosis, or thyromegaly. No jugular venous distention. No lower limb edema. VITAL SIGNS: Her heart rate was 81, blood pressure was 162/80, temperature was 98.7, respiratory rate was 18, and oxygen saturation was 96% on room air. HEAD, EYES, EARS, NOSE, AND THROAT: Normocephalic, atraumatic. NECK: Supple. HEART: Showed normal first and second heart sounds with no gallop, rub, or murmur. CHEST: Clear to auscultation. No crepitation or rhonchi. ABDOMEN: Distended, soft, and nontender. No guarding or rigidity. No organomegaly. All hernial orifices intact. Bowel sounds normal. NEUROLOGIC: She is awake, alert, and oriented to time, place, and person. All cranial nerves intact. EXTREMITIES: She moves extremities without difficulty. She ambulates without assistance or assistive devices. LABORATORY DATA: All her lab works were done at [facility] and were within acceptable range and had 2 troponins done, showed that the troponin to be less than 0.017. MEDICATIONS: She was discharged home to continue on her oral medication including aspirin 81 mg once a day, atorvastatin 40 mg at bedtime, diltiazem 240 mg daily, Tikosyn 250 mcg capsule twice a day, Trulicity 0.75 mg in 0.5 mL subcutaneously once every Tuesday, hydralazine 50 mg once a day, hydrocodone/APAP 5/325 one tablet twice a day, levothyroxine sodium 125 mcg once a day, lisinopril 20 mg once a day, magnesium oxide 400 mg daily, metformin 500 mg at bedtime, metformin 750 mg daily with breakfast, ondansetron 4 mg every 4-6 hours, Protonix 20 mg once a day, Effient 10 mg daily with breakfast, sulfasalazine 1000 mg twice a day, temazepam, Restoril 15 mg at bedtime, and tramadol 50 mg every 6 hours. FINAL DISCHARGE DIAGNOSES: 1. Paroxysmal atrial fibrillation, on calcium channel blockers and Tikosyn. The patient has converted to sinus rhythm. 2. Chest pain, atypical. Troponins were negative. 3. Coronary artery disease, status post PCI with a drug-eluting stent deployment to left circumflex artery. 4. Hypertension, well controlled. 5. Hyperlipidemia, on statin. 6. Type 2 diabetes. 7. Chronic kidney disease. 8. Hypothyroidism. 9. Non-Hodgkin lymphoma. ARNOLD DYER MD DR: AIXA/emerald JOB#: [id number] / [id number]
[2019-05-21] MEDS ORDERED: DABI150C PO (09:21)
[2019-05-21] MEDS ORDERED: CLOP75TA PO (09:21)
== END 2019-05-07 17:45 | disposition home or self-care (01) | DRG 309 ==
LOC: 2 SOUTH 14:34
PROVIDERS: ADMIT Internal Medicine; ATTEND Internal Medicine
DX: I48.0 Paroxysmal atrial fibrillation (principal); C85.90 Non-Hodgkin lymphoma, unspecified, unspecified site; E03.9 Hypothyroidism, unspecified; E11.22 Type 2 diabetes mellitus with diabetic chronic kidney disease; E78.5 Hyperlipidemia, unspecified; I12.9 Hypertensive chronic kidney disease with stage 1 through stage 4 chronic kidney disease, or unspecified chronic kidney disease; I25.10 Atherosclerotic heart disease of native coronary artery without angina pectoris; N18.9 Chronic kidney disease, unspecified; Z82.49 Family history of ischemic heart disease and other diseases of the circulatory system; Z90.710 Acquired absence of both cervix and uterus; Z90.49 Acquired absence of other specified parts of digestive tract; Z92.21 Personal history of antineoplastic chemotherapy; Z98.61 Coronary angioplasty status; Z88.8 Allergy status to other drugs, medicaments and biological substances
CPT/HCPCS: 36415; 84484; J1815; G0378

== ENCOUNTER 2019-05-22 11:54 | Day surgery (SDC) | payer BC ==
[~2019-05-22 11:54] MED LIST changes: +ATOR40TA59 PO; +BENZOCAINE ONE 20% MUCOSAL SPRAY. MM; +CLOP75TA PO; +DABI150C PO; +DILT240T8 PO; +DOFE250C PO; +IV RINGERS,LACTATED 1000ML 1,000 ML IV SCH; +LIDOCAINE 2% TOPICAL JELLY 5GM TUBE. TP ONE; +LIDOCAINE 2% VISCOUS 15 ML SOLUTION. SWSW ONE; +ONDA4TAB11 PO; -SIMV20TA18 PO; +SIMV20TA3 PO
[2019-05-22] MEDS ORDERED: INSULIN LISPRO 100 UNIT/ML 3ML VIAL for OP,RR ONLY. SQ PRN (12:30)
[2019-05-22] MEDS ORDERED: PROPOFOL 40 ML IV ONE (14:13)
[2019-05-22] MEDS ORDERED: LIDOCAINE 2% PF 5 ML VIAL. ONE (14:14)
--- NOTE | 2019-05-22 15:01 | CARD ---
MR#: [id number] Date of Study: 05/22/2019 Ordering Physician: ALIS LIVE, Referring Physician: ALIS LIVE, Tech: Morenita Ritchie [facility] APPROVED REPORT EXAM: Transesophageal echocardiogram with color flow Doppler. INDICATION Atrial Fibrillation Reason For Test : Rule out cardiac source of emboli. PROCEDURE After obtaining informed consent, patient underwent transesophageal echo in the PACU. Type of Sedation : General Anesthesia Sedation was administered by General Anesthesia. Sedation was achieved with Propofol 270mg intravenously. Throughout the procedure, the blood pressure, pulse oximetry, cardiac rhythm, and rate were monitored . LEFT VENTRICLE The left ventricle is normal size. There is normal left ventricular wall thickness. The left ventricu lar systolic function is normal and the ejection fraction is within normal range. The Ejection Fracti on is 55-60%. There is normal LV segmental wall motion. The left ventricular diastolic function and f illing is normal for age. RIGHT VENTRICLE The right ventricle is normal size. There is normal right ventricular wall thickness. The right ventr icular systolic function is normal. ATRIA The left atrium size is normal. The right atrium size is normal. The interatrial septum is intact wit h no evidence for an atrial septal defect or patent foramen ovale as noted on 2-D or Doppler imaging. There is no thrombus noted in the left atrial appendage. AORTIC VALVE The aortic valve is normal in structure and function. The aortic valve is trileaflet. Doppler and Col or Flow revealed no significant aortic regurgitation. There is no significant aortic valvular stenosi s. There is no aortic valvular vegetation. MITRAL VALVE The mitral valve is normal in structure and function. There is no evidence of mitral valve prolapse. There is no mitral valve stenosis. Doppler and Color-flow revealed trace to mild mitral regurgitation . TRICUSPID VALVE The tricuspid valve is normal in structure and function. Doppler and color-flow analysis was not perf ormed. There is no tricuspid valve prolapse or vegetation. There is no tricuspid valve stenosis. PULMONIC VALVE The pulmonary valve is normal in structure and function. Doppler and Color Flow revealed no pulmonic valvular regurgitation. There is no pulmonic valvular stenosis. GREAT VESSELS The aortic root is normal in size. The ascending aorta is normal in size. The IVC is normal in size a nd collapses >50% with inspiration. Critical Notification Critical Value: No <Conclusion> The left ventricular systolic function is normal and the ejection fraction is within normal range. Th e Ejection Fraction is 55-60%. There is normal LV segmental wall motion. There is no thrombus noted in the left atrial appendage. Doppler and Color-flow revealed trace to mild mitral regurgitation. Signed by : Alis Live, Electronically Approved : 05/22/2019 15:01:37
[2019-05-22 15:08] VITALS: BP 154/81
== END 2019-05-22 15:15 | disposition home or self-care (01) ==
LOC: SURG 11:54
PROVIDERS: ATTEND Internal Medicine Cardiovascular Disease
DX: I48.91 Unspecified atrial fibrillation (principal); I34.0 Nonrheumatic mitral (valve) insufficiency; E78.00 Pure hypercholesterolemia, unspecified; I25.10 Atherosclerotic heart disease of native coronary artery without angina pectoris; E11.22 Type 2 diabetes mellitus with diabetic chronic kidney disease; I12.9 Hypertensive chronic kidney disease with stage 1 through stage 4 chronic kidney disease, or unspecified chronic kidney disease; N18.9 Chronic kidney disease, unspecified; E89.0 Postprocedural hypothyroidism; K21.9 Gastro-esophageal reflux disease without esophagitis; Z95.5 Presence of coronary angioplasty implant and graft; Z90.49 Acquired absence of other specified parts of digestive tract; Z79.84 Long term (current) use of oral hypoglycemic drugs
CPT/HCPCS: 82962; 93312; 93320; 93325; J2001; J2704

== ENCOUNTER → 2020-11-12 | Outpatient (CLI) | payer BC ==
[2020-06-10 19:45] VITALS: BP 109/62
[~2020-11-12] MED LIST changes: +APIX5TAB PO; -ASPI-612 PO; +ASPI-886 PO; -BENZOCAINE ONE 20% MUCOSAL SPRAY. MM; +DILT360T7 PO; +FERR236T2 PO; +HYDR-2145 PO; +HYDR100T24 PO; -IV RINGERS,LACTATED 1000ML 1,000 ML IV SCH; -LIDOCAINE 2% TOPICAL JELLY 5GM TUBE. TP ONE; -LIDOCAINE 2% VISCOUS 15 ML SOLUTION. SWSW ONE; -LISI-334 PO; +LISI20TA18 PO; +LISI40TA6 PO; +METO-247 PO; +MULT-245 PO; +ONDA-84 PO; -ONDA4TAB11 PO; +PANT40TA77 PO; +SIMV20TA18 PO; -SIMV20TA3 PO
--- NOTE | 2020-11-12 13:23 | CARD ---
MR#: [id number] Date of Study: 11/12/2020 Ordering Physician: ALIS LIVE, Referring Physician: ALIS LIVE, Tech: Carmen Guadarrama, [facility] [[email or web address]] APPROVED REPORT EXAM: Two-dimensional and M-mode echocardiogram with Doppler and color Doppler. Other Information Quality : AverageHR: 68bpm INDICATION Cardiac Disease: CAD RISK FACTORS Hypertension Hyperlipidemia Diabetes 2D DIMENSIONS RVDd3.0 (2.9-3.5cm)Left Atrium(2D)3.3 (1.6-4.0cm) IVSd1.3 (0.7-1.1cm)Aortic Root(2D)3.6 (2.0-3.7cm) LVDd5.0 (3.9-5.9cm)LVOT Diameter2.0 (1.8-2.4cm) PWd1.2 (0.7-1.1cm)LVDs2.8 (2.5-4.0cm) FS (%) 44.0 %SV87.1 ml LVEF(%)70.1 (>50%) Aortic Valve AoV Peak Khanh.117.3cm/sAoV VTI25.6cm AO Peak GR.5.5mmHgLVOT Peak Khanh.85.7cm/s LVOT VTI 19.95cmAO Mean GR.3mmHg MIAN (VMAX)1.51qw0BXQ (VTI)2.37cm2 Mitral Valve MV E Ukpbvwyj62.9cm/sMV DECEL LVEI860bx MV A Wgzutwte68.7cm/sMV [id number] E/A Ratio1.2MVA (PHT)3.85cm2 Pulmonary Valve PV Peak Xepiblnt00.8cm/sPV Peak Grad.3mmHg Tricuspid Valve TR P. Baorrwvg852hn/sRAP SRSMCGZE5acGv TR Peak Gr.10tgYrQCUR20seEo Pulmonary Vein S1 Ddpvicas43.3cm/sD2 Qctrjuff57.2cm/s PVa [id number] LEFT VENTRICLE The left ventricle is normal size. The left ventricular systolic function is normal. The ejection fra ction is estimated at 55-60%. There is normal LV segmental wall motion. RIGHT VENTRICLE The right ventricle is normal size. There is normal right ventricular wall thickness. The right ventr icular systolic function is normal. ATRIA The left atrium size is normal. The right atrium size is normal. The interatrial septum is intact wit h no evidence for an atrial septal defect or patent foramen ovale as noted on 2-D or Doppler imaging. AORTIC VALVE The aortic valve is calcified but opens well. Doppler and Color Flow revealed trace aortic regurgitat ion. Calculated aortic valve area is 2.5 cm2 with maximum pressure gradient of 8 mmHg and mean pressu re gradient of 4 mmHg. There is no significant aortic valvular stenosis. MITRAL VALVE The mitral valve is normal in structure and function. There is no evidence of mitral valve prolapse. There is no mitral valve stenosis. Doppler and Color-flow revealed trace mitral regurgitation. TRICUSPID VALVE The tricuspid valve is normal in structure and function. Doppler and Color Flow revealed trace tricus pid regurgitation with an estimated PAP of 26 mmHg. There is no tricuspid valve stenosis. PULMONIC VALVE The pulmonic valve is not well visualized. Doppler and Color Flow revealed trace pulmonic valvular re gurgitation. GREAT VESSELS The aortic root is mildly to moderately enlarged measuring 3.7 cm. The ascending aorta is Mildly dila harmony measuring 3.7 cm. The IVC is normal in size and collapses >50% with inspiration. PERICARDIAL EFFUSION There is no evidence of significant pericardial effusion. Critical Notification Critical Value: No <Conclusion> The left ventricular systolic function is normal. The ejection fraction is estimated at 55-60%. There is normal LV segmental wall motion. Trace mitral regurgitation. Trace tricuspid regurgitation with an estimated PAP of 26 mmHg. There is no evidence of significant pericardial effusion. Signed by : Claudy Causey, Electronically Approved : 11/12/2020 13:22:39
== END ==
LOC: ECHO 08:43
PROVIDERS: ATTEND Internal Medicine Cardiovascular Disease
DX: I35.8 Other nonrheumatic aortic valve disorders (principal); I77.810 Thoracic aortic ectasia; I25.10 Atherosclerotic heart disease of native coronary artery without angina pectoris
CPT/HCPCS: 93306